=== PATIENT | female | born 1980 | race Caucasian/White ===

== ENCOUNTER 2020-10-02 18:26 | Emergency (ER) | payer BC ==
[2020-10-02] MEDS: Sodium Chloride 0.9% 10 ML Syringe FLUSH PRN ×2 (18:53→19:13)
[2020-10-02] MEDS ORDERED: Iopamidol 755 Mg/ML 100 ML Bottle IV SCH (19:00)
[2020-10-02] MEDS ORDERED: Sodium Chloride 0.9% 100 ML IV SCH (19:00)
--- NOTE | 2020-10-02 20:11 | CRLCT ---
INDICATION: Right-sided chest pain with abnormal CT of the chest from yesterday. COMPARISON: CT of the chest, abdomen, and pelvis from yesterday. TECHNIQUE: CT examination of the chest was performed with the uneventful intravenous administration of 100 cc of Isovue 370 while 2 mm thick axial sections were obtained through the pulmonary arteries. Please note that all CT scans at this facility use dose modulation, iterative reconstruction, and/or weight-based dosing when appropriate to reduce radiation dose to as low as reasonably achievable. FINDINGS: : There is no sign of pulmonary embolism, with normal enhancement and branching of the pulmonary arteries. Again seen is the focal area consolidation in the posterior-lateral right lung base. This is not associated with pulmonary embolism. This is most likely a focal right lower lobe pneumonia. Recommend follow-up CT of the chest without contrast after resolution of inflammatory symptoms to ensure that there is no sign of any underlying mass. There is no sign of any additional infiltrate elsewhere in the chest to suggest additional areas of pneumonia. Again seen is the 3 millimeter noncalcified pleural nodule located along the lateral aspect of the right major fissure on axial image 59 series 5. There is no change in the small calcified granuloma in the subpleural posterior-lateral left lower lobe on axial image 92 series 5. There is no sign of mediastinal or hilar mass or adenopathy. The heart is normal in appearance for the patient`s age, as are the aorta and other ascending great vessels. There is no sign of supraclavicular or axillary mass or adenopathy. The visualized superior liver, spleen, pancreas, kidneys, and adrenals are normal in appearance. The osseous structures are normal in appearance for the patient`s age. IMPRESSION: No sign of pulmonary embolism. Area of focal consolidation in the posterior-lateral right lower lobe is probably and early right lower lobe pneumonia. Recommend follow-up CT of the chest after resolution of inflammatory symptoms to exclude an underlying mass. Other small right pleural nodule and calcified granuloma of no clinical concern. Please note that all CT scans at this facility use dose modulation, iterative reconstruction, and/or weight-based dosing when appropriate to reduce radiation dose to as low as reasonably achievable. Dictated by Von Laws MD @ 10/02/2020 8:10:[address] Von Laws @ Oct 02 2020 8:10PM
--- NOTE | 2020-10-02 20:23 | EDM.PDOC ---
ED HPI GENERAL MEDICAL PROBLEM - General Chief Complaint: Respiratory Problem Stated Complaint: MEDICAL Time Seen by Provider: 10/02/20 18:40 Source of Information: Reports: Patient, Provider - History of Present Illness INITIAL COMMENTS - FREE TEXT/NARRATIVE: Joslyn is a 40-year-old female sent in from Dr. Arambula's office for a CT angiogram of the chest. The patient was seen in the clinic several times and initially thought to have a ureterolithiasis at which time she underwent a CT of the abdomen and pelvis without contrast showing what appeared to be a pulmonary infarct in the right base. She was seen in the clinic today and discussed the results of the CT scan. The clinic talked with the [facility] voice studies director who recommended a CT angiogram to rule out pulmonary emboli. The patient is on oral contraceptives and does smoke socially. She denies any fever or chills, cough, but does have pleuritic chest pain in the right flank rating up to the right shoulder. 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: - Infectious Disease History Infectious Disease History: Reports: Chicken Pox - Past Surgical History HEENT Surgical History: Reports: Other (See Below) Other HEENT Surgeries/Procedures: wisdom teeth extraction Social & Family History - Tobacco Use Tobacco Use Status *Q: Never Tobacco User - Caffeine Use Caffeine Use: Reports: Coffee - Alcohol Use Days Per Week of Alcohol Use: 3 Number of Drinks Per Day: 2 Total Drinks Per Week: 6 - Recreational Drug Use Recreational Drug Use: No ED ROS GENERAL - Review of Systems Review Of Systems: See Below Constitutional: Reports: No Symptoms HEENT: Reports: No Symptoms Respiratory: Reports: Pleuritic Chest Pain (Right flank). Denies: Shortness of Breath, Cough Cardiovascular: Reports: Chest Pain (Right-sided) Endocrine: Reports: No Symptoms GI/Abdominal: Reports: No Symptoms : Reports: Flank Pain (Right), Hematuria Musculoskeletal: Reports: No Symptoms Skin: Reports: No Symptoms Neurological: Reports: No Symptoms Psychiatric: Reports: No Symptoms Hematologic/Lymphatic: Reports: No Symptoms Immunologic: Reports: No Symptoms ED EXAM, GENERAL - Physical Exam Exam: See Below Exam Limited By: No Limitations General Appearance: Alert, No Apparent Distress Eye Exam: Bilateral Eye: EOMI, PERRL Head: Atraumatic, Normocephalic Respiratory/Chest: No Respiratory Distress, Lungs Clear, Normal Breath Sounds, No Accessory Muscle Use, Chest Non-Tender Cardiovascular: Normal Peripheral Pulses, Regular Rate, Rhythm, No Murmur Back Exam: Normal Inspection Neurological: Alert, Oriented, Normal Cognition, No Motor/Sensory Deficits Skin Exam: Warm, Dry Course - Vital Signs Last Recorded V/S: Last Vital Signs Temp 36.3 C 10/02/20 18:45 Pulse 103 H 10/02/20 18:45 Resp 15 10/02/20 18:45 BP 147/94 H 10/02/20 18:45 Pulse Ox 99 10/02/20 18:45 - Orders/Labs/Meds Orders: Active Orders 24 hr Category Date Time Status Iopamidol [Isovue-370 (76%)] Med 10/02/20 19:00 Active 100 ml IV . DIRECTED Sodium Chloride 0.9% [Normal Saline] 100 ml Med 10/02/20 19:00 Active IV ASDIRECTED Sodium Chloride 0.9% [Saline Flush] Med 10/02/20 18:42 Active 10 ml FLUSH ASDIRECTED PRN Saline Lock Insert [OM.PC] Routine Oth 10/02/20 18:42 Ordered Medication Orders Sodium Chloride (Normal Saline) 100 mls @ 3 mls/sec IV ASDIRECTED SHERRY Last Admin: 10/02/20 19:13 Dose: 3 mls/sec Documented by: SABINO Iopamidol (Iopamidol 755 Mg/Ml 100 Ml Bottle) 100 ml IV . DIRECTED SHERRY Last Admin: 10/02/20 19:13 Dose: 100 ml Documented by: SABINO Sodium Chloride (Sodium Chloride 0.9% 10 Ml Syringe) 10 ml FLUSH ASDIRECTED PRN PRN Reason: Keep Vein Open Last Admin: 10/02/20 19:13 Dose: 10 ml Documented by: Admin: 10/02/20 18:53 Dose: 10 ml Documented by: JOHN Meds: Medications Generic Name Dose Route Start Last Admin Trade Name Freq PRN Reason Stop Dose Admin Sodium Chloride 100 mls @ 3 mls/sec 10/02/20 19:00 10/02/20 19:13 Normal Saline IV 3 mls/sec ASDIRECTED SHERRY Administration Iopamidol 100 ml 10/02/20 19:00 10/02/20 19:13 Iopamidol 755 Mg/Ml 100 Ml Bottle IV 100 ml . DIRECTED SHERRY Administration Sodium Chloride 10 ml 10/02/20 18:42 10/02/20 19:13 Sodium Chloride 0.9% 10 Ml Syringe FLUSH 10 ml ASDIRECTED PRN Administration Keep Vein Open - Radiology Interpretation Free Text/Narrative:: I reviewed the CT angiogram of the chest as well as the report. The patient does not have any evidence of pulmonary emboli, but rather evidence for an early focal right lower lobe pneumonia. - Re-Assessments/Exams Free Text/Narrative Re-Assessment/Exam: 10/02/20 20:29 I reviewed the report on the CT angiogram of the chest. The patient has evidence for an acute focal right lower lobe infiltrate consistent with an early pneumonia. We will put her on azithromycin Z-Zion for the infection and Toradol 10 mg 4 times daily for pain control. Indications return to the ED were discussed and the patient was discharged in satisfactory condition. Departure - Departure Time of Disposition: 20:21 Disposition: Home, Self-Care 01 Clinical Impression: Pneumonia Qualifiers: Pneumonia type: due to unspecified organism Laterality: right Lung location: lower lobe of lung Qualified Code(s): J18.9 - Pneumonia, unspecified organism - Discharge Information Instructions: Community-Acquired Pneumonia, Adult, [id number] Referrals: Carlos Arambula MD [Primary Care Provider] - Forms: ED Department Discharge Care Plan Goals: Your scan today did not demonstrate any evidence for pulmonary emboli. You do appear to have the early onset of right lower lobe pneumonia which is likely causing referred pain both to the pleural cavity in the right lower flank but also in your right shoulder. For this I am putting you on Toradol 10 mg 4 times a day as needed for pain control. This is a potent anti-inflammatory as you know. For the infection I am putting you on azithromycin 2 tablets today and 1 tablet a day for the next 4 days. This should take care of the infection. Return either the clinic or the ED should you develop significant worsening in your symptoms. Feel free to contact us if you have any questions. Sepsis Event Note (ED) - Evaluation Sepsis Screening Result: No Definite Risk - Focused Exam Vital Signs: Vital Signs Temp Pulse Resp BP Pulse Ox 10/02/20 18:45 36.3 C 103 H 15 147/94 H 99 10/02/20 18:44 36.3 C 103 H 15 147/94 H 99 - Problem List & Annotations (1) Pneumonia SNOMED Code(s): 802672447 Code(s): J18.9 - PNEUMONIA, UNSPECIFIED ORGANISM Status: Acute Priority: Medium Current Visit: Yes Qualifiers: Pneumonia type: due to unspecified organism Laterality: right Lung location: lower lobe of lung Qualified Code(s): J18.9 - Pneumonia, unspecified organism - Problem List Review Problem List Initiated/Reviewed/Updated: Yes - My Orders Last 24 Hours: My Active Orders 10/02/20 18:42 Sodium Chloride 0.9% [Saline Flush] 10 ml FLUSH ASDIRECTED PRN Saline Lock Insert [OM.PC] Routine 10/02/20 19:00 Iopamidol [Isovue-370 (76%)] 100 ml IV . DIRECTED Sodium Chloride 0.9% [Normal Saline] 100 ml IV ASDIRECTED - Assessment/Plan Last 24 Hours: My Active Orders 10/02/20 18:42 Sodium Chloride 0.9% [Saline Flush] 10 ml FLUSH ASDIRECTED PRN Saline Lock Insert [OM.PC] Routine 10/02/20 19:00 Iopamidol [Isovue-370 (76%)] 100 ml IV . DIRECTED Sodium Chloride 0.9% [Normal Saline] 100 ml IV ASDIRECTED
== END 2020-10-02 20:30 | disposition home or self-care (01) ==
LOC: JP.ED 18:26
DX: J18.9 Pneumonia, unspecified organism (principal)
CPT/HCPCS: 71275; 99284; Q9967; 99283

== ENCOUNTER 2025-04-18 06:24 | Day surgery (SDC) | payer BC ==
[2025-04-18] MEDS ORDERED: fentaNYL 50 MCG/ML SDV ONE (07:01)
[2025-04-18] MEDS ORDERED: Propofol 200 MG/20 ML SDV ONE ×2 (07:01→08:12)
[2025-04-18] MEDS: Lactated Ringers 1,000 ML IV SCH (07:06)
== END 2025-04-18 08:50 | disposition home or self-care (01) ==
LOC: JP.SDS 06:24
PROVIDERS: ATTEND Family Medicine
DX: Z12.11 Encounter for screening for malignant neoplasm of colon (principal); K63.5 Polyp of colon; K62.1 Rectal polyp
CPT/HCPCS: 00811; 45380; J2704; J3010; J7120; 88305